=== PATIENT | male | born 1950 | race Caucasian/White ===

== ENCOUNTER 2019-06-26 06:50 | Day surgery (SDC) | payer MEDICARE ==
[2019-06-26 07:21] VITALS: PULSE 87
[2019-06-26] MEDS ORDERED: Sodium Chloride 0.9% 10 ML Syringe FLUSH PRN (07:45)
[2019-06-26 08:57] VITALS: BP 170/78
--- NOTE | 2019-06-26 13:59 | OR ---
DATE OF PROCEDURE: 06/26/2019 SURGEON: Anna Zapata MD POSTOPERATIVE CARE: Postoperative care will be provided mainly at the [address] [place] [address] [facility] in conjunction with [facility]. PREOPERATIVE DIAGNOSIS: Cataract, right eye. POSTOPERATIVE DIAGNOSIS: Cataract, right eye. PROCEDURE: Phacoemulsification with intraocular lens placement, right eye. ANESTHESIA: Topical and intracameral. ESTIMATED BLOOD LOSS: Minimal. COMPLICATIONS: None. PATHOLOGY SPECIMENS: None. SURGICAL FINDINGS: None. INDICATION FOR PROCEDURE: The patient is a 68-year-old male with history of a visually significant cataract in the right eye, which interfered with activities of daily living. This consisted of a nuclear sclerosis cataract. Following careful discussion of the risks, benefits and alternatives to cataract extraction with intraocular lens placement including blindness and , the patient elected to proceed, and informed, written consent was obtained prior to the procedure. DESCRIPTION OF THE PROCEDURE: The patient was previously identified, and a yane placed above the right eye. All sources, including the patient, indicated that the right eye was the correct eye. The patient was subsequently taken to the operating room where standard monitors were applied. The patient was then prepped and draped in the usual sterile fashion for ophthalmic surgery. Attention was first directed at the 12 o'clock position where a paracentesis port was fashioned. Shugar solution followed by Viscoat was instilled into the eye. Attention was then directed to the 8:30 position where a triplanar incision was made in a near-clear manner using a keratome. A continuous capsulorrhexis was then made using a combination of the cystotome and Utrata forceps. Hydrodissection was achieved using a balanced salt solution, and the lens rotated nicely. Phacoemulsification was then done using a modified iabkyw-zth-hjbgfxg technique without complication. Phaco time was 5.82 CDE. The remaining cortex was removed using the irrigation/aspiration handpiece. Provisc was then instilled into the eye. A Technis lens, model [id number], at 17.5 diopters was then placed in the capsular bag using an Fyffe injector. The remaining viscoelastic was removed using the irrigation/aspiration forceps. All wounds were then checked and found to be watertight. The lid speculum and drapes were removed. Maxitrol ointment was placed in the patient's right eye, and the eye was shielded. The patient tolerated the procedure well. The patient was instructed to follow up tomorrow. All needle and sponge counts were correct at the end of the procedure. Anna Zapata MD /[id number]
== END 2019-06-26 09:35 | disposition home or self-care (01) ==
LOC: JP.SDS 06:50
PROVIDERS: ATTEND Ophthalmology
DX: E11.36 Type 2 diabetes mellitus with diabetic cataract (principal); H25.11 Age-related nuclear cataract, right eye; Z88.8 Allergy status to other drugs, medicaments and biological substances
CPT/HCPCS: 66984; V2632

== ENCOUNTER 2019-07-10 06:57 | Day surgery (SDC) | payer MEDICARE ==
[2019-07-10] MEDS ORDERED: Sodium Chloride 0.9% 10 ML Syringe FLUSH SCH (08:15)
[2019-07-10 09:24] VITALS: BP 154/79; PULSE 82
--- NOTE | 2019-07-10 16:08 | OR ---
DATE OF PROCEDURE: 07/10/2019 SURGEON: Anna Zapata MD POSTOPERATIVE CARE: Postoperative care will be provided mainly at the [address] [place] [address] [facility] in conjunction with [facility]. PREOPERATIVE DIAGNOSIS: Cataract, left eye. POSTOPERATIVE DIAGNOSIS: Cataract, left eye. PROCEDURE: Phacoemulsification with intraocular lens placement, left eye. ANESTHESIA: Topical and intracameral. ESTIMATED BLOOD LOSS: Minimal. COMPLICATIONS: None. PATHOLOGY SPECIMENS: None. SURGICAL FINDINGS: None. INDICATION FOR PROCEDURE: The patient is a 68-year-old male with history of a visually significant cataract in the left eye, which interfered with activities of daily living. This consisted of a nuclear sclerosis cataract. Following careful discussion of the risks, benefits and alternatives to cataract extraction with intraocular lens placement including blindness and , the patient elected to proceed, and informed, written consent was obtained prior to the procedure. DESCRIPTION OF THE PROCEDURE: The patient was previously identified, and a yane placed above the left eye. All sources, including the patient, indicated that the left eye was the correct eye. The patient was subsequently taken to the operating room where standard monitors were applied. The patient was then prepped and draped in the usual sterile fashion for ophthalmic surgery. Attention was first directed at the 12 o'clock position where a paracentesis port was fashioned. Shugar solution followed by Viscoat was instilled into the eye. Attention was then directed to the 8:30 position where a triplanar incision was made in a near-clear manner using a keratome. A continuous capsulorrhexis was then made using a combination of the cystotome and Utrata forceps. Hydrodissection was achieved using a balanced salt solution, and the lens rotated nicely. Phacoemulsification was then done using a modified wykslm-sqv-zlftxzx technique without complication. Phaco time was 5.03 CDE. The remaining cortex was removed using the irrigation/aspiration handpiece. Provisc was then instilled into the eye. A Technis lens, model [id number], at 19.5 diopters was then placed in the capsular bag using an [place] injector. The remaining viscoelastic was removed using the irrigation/aspiration forceps. All wounds were then checked and found to be watertight. The lid speculum and drapes were removed. Maxitrol ointment was placed in the patient's left eye, and the eye was shielded. The patient tolerated the procedure well. The patient was instructed to follow up tomorrow. All needle and sponge counts were correct at the end of the procedure. Anna Zapata MD /[id number]
== END 2019-07-10 09:43 | disposition home or self-care (01) ==
LOC: JP.SDS 06:57
PROVIDERS: ATTEND Ophthalmology
DX: E11.36 Type 2 diabetes mellitus with diabetic cataract (principal); H25.12 Age-related nuclear cataract, left eye; J44.9 Chronic obstructive pulmonary disease, unspecified; E66.9 Obesity, unspecified; Z68.37 Body mass index [BMI] 37.0-37.9, adult; Z88.8 Allergy status to other drugs, medicaments and biological substances; Z79.82 Long term (current) use of aspirin; Z79.84 Long term (current) use of oral hypoglycemic drugs
CPT/HCPCS: V2632

== ENCOUNTER 2021-04-20 08:33 | Day surgery (SDC) | payer MEDICARE ==
[2021-04-20 08:24] LABS: CORONAVIRUS COVID-19 NAA NEGATIVE (NEGATIVE)
[~2021-04-20 08:33] MED LIST: Nozin Nasal Sanitizer NASBOTH ONE
[2021-04-20] MEDS ORDERED: Lactated Ringers 1,000 ML IV SCH (09:30)
[2021-04-20] MEDS ORDERED: Bupivacaine 0.5% 30 ML SDV ONE (09:41)
[2021-04-20] MEDS ORDERED: ceFAZolin 1 GM in Premix Bag 1 BAG IV ONE (10:00)
[2021-04-20] MEDS ORDERED: Propofol 200 MG/20 ML SDV ONE ×3 (12:08→13:31)
[2021-04-20] MEDS ORDERED: fentaNYL 100 MCG/2 ML SDV ONE ×3 (12:08→13:42)
[2021-04-20] MEDS ORDERED: Midazolam 1 MG/ML 2 ML SDV ONE (12:09)
[2021-04-20] MEDS ORDERED: Lidocaine 0.5% 50 ML SDV ONE (12:10)
[2021-04-20] MEDS ORDERED: Lactated Ringers 1,000 ML ONE (14:02)
[2021-04-20] MEDS ORDERED: Acetaminophen/HYDROcodone 325-5 MG Tab PO PRN (15:53)
[2021-04-20 16:09] VITALS: BP 122/73; PULSE 75
--- NOTE | 2021-04-25 16:27 | OR ---
DATE OF PROCEDURE: 04/20/2021 SURGEON: Chidi Fuchs MD PREOPERATIVE DIAGNOSIS: Avulsion of flexor digitorum profundus of left fourth finger with fracture of base of the distal phalanx. POSTOPERATIVE DIAGNOSES: 1. Avulsion of flexor digitorum profundus, left fourth finger with retraction of the tendon into the palm. 2. Fracture of the base of the distal phalanx, palmar aspect. PROCEDURES: 1. Open reduction and internal fixation of fracture of the base of distal phalanx, fourth finger. 2. Repair of flexor digitorum profundus avulsion, jersey finger, zone 1. SUBSYSTEMS ENGINEER: RAY Orozco ANESTHESIA: [place] block with sedation. INDICATIONS: Mr. Fountain is a 70-year-old gentleman who sustained a fall earlier this month resulting in injury to his fourth finger. He has been unable to flex the finger since that time. X-ray reveals a fracture at the base of the distal phalanx palmar aspect consistent with an avulsion fracture of the attachment of the FDP tendon caught up at the A5 luis eduardo. He now presents for fixation of the fracture and repair of the FDP tendon. Risks, benefits, and potential complications were discussed. DESCRIPTION OF PROCEDURE: After adequate anesthesia was obtained, left hand was prepped and draped in a sterile fashion. A Irma incision was planned over the palmar aspect of the fifth finger, exposing the distal interphalangeal joint. The fracture fragment was readily identified with no healing present. Unfortunately, this did not represent a simple avulsion with attached flexor digitorum tendon. The avulsed fragment had the volar plate attached, but the tendon was completely avulsed and retracted. Dissection carried down to the level of the PIP joint. The attachments of the flexor superficialis tendons were identified, and the flexor digitorum tendon was absent within the tendon sheath at this level. Couple of attempts were used to grasp the tendon using a Mosquito clip through the tendon sheath. This was unsuccessful. A separate incision was made in the palm overlying the A1 luis eduardo of the fourth finger. This was carried down over the A1 luis eduardo. The luis eduardo was divided, and the tendon was retrieved at this level and pulled out into the palm. The edges of the tendon were lightly debrided and contoured. A modified Jackson stitch was placed at the end of the tendon. A 4-[place]oc[place] pediatric feeding tube was passed through the tendon sheath and out the transected A1 luis eduardo in the palm. The Jackson suture in the end of the tendon was stitched to the feeding tube, and this was used to transport the tendon up through the tendon sheath. A 22-gauge needle was used to maintain the tendon in position. Attention was then turned to the displaced fracture. A #3 nylon suture was placed through the fracture fragment and woven into the volar plate. A K-wire was used to make 2 tunnels through the distal phalanx from palmar to dorsal exiting proximal to the nail matrix. A separate incision was made transversely proximal to the nail matrix at the level of the pins. The sutures from each end placed through the fragment and volar plate were passed using a straight Harish needle through the tunnels and brought out dorsally. The DIP was flexed, and the sutures were tied over the cortex of the bone. An additional 3-0 nylon suture was placed superficially through the end of the volar plate. Each end of this suture was passed with the straight needle around the edge of the phalanx and brought out through the dorsal incision. This was used as additional fixation of the fragment with the sutures again tied over the bone bridge dorsally. A 3-0 nylon suture was placed to the end of the tendon in a modified Jackson stitch. Each end of the sutures was also passed through the bone tunnels prior to tying down the fragment at the base of the distal phalanx. Once the fragment had been stabilized in position, the sutures for the tendon were tied while the finger was maintained in a flexed position approximating the end of the tendon to the base of the phalanx. Reinforcing stitches were placed through each side of the tendon incorporating the volar plate and the portion of the periosteum. These sutures were tied and cut. Wound was irrigated. Skin was closed with 4-0 chromic over the palmar aspect of the finger. A 3-0 nylon was used in interrupted mattress fashion over the A1 luis eduardo as well as in simple fashion on the dorsum of the finger distally. Care was taken to make sure that the dorsal suture knots were buried beneath the skin. The palm was infiltrated with 0.5% Marcaine as well as additional digital nerve block being performed. Wound was dressed with Xeroform gauze dressing with gauze between the fingers, and a short-arm fiberglass dorsal extension block splint was placed. The patient tolerated the procedure well. There were no complications. He was taken from the operating room in stable condition. Chidi Fuchs MD /[id number]
--- NOTE | 2021-04-26 12:56 | PCM.EKG ---
#1 Interpretation EKG Date: 04/20/21 Time: 08:59 Rhythm: NSR Rate (Beats/Min): 88 [place]: LAD-Left [place] Deviation (LAFB) P-Wave: Present QRS: Normal ST-T: Normal QT: Normal MI/PQ Interval: normal Comparison: NA - No Prior EKG EKG Interpretation Comments: LVH early R-S transition between V1 and V2
== END 2021-04-20 16:30 | disposition home or self-care (01) ==
LOC: JP.SDS 08:33
PROVIDERS: ATTEND Specialist
DX: S62.635A Displaced fracture of distal phalanx of left ring finger, initial encounter for closed fracture (principal); S66.195A Other injury of flexor muscle, fascia and tendon of left ring finger at wrist and hand level, initial encounter; I10 Essential (primary) hypertension; J44.9 Chronic obstructive pulmonary disease, unspecified; E11.9 Type 2 diabetes mellitus without complications; K21.9 Gastro-esophageal reflux disease without esophagitis; Z01.812 Encounter for preprocedural laboratory examination; Z20.822 Contact with and (suspected) exposure to COVID-19; Z88.8 Allergy status to other drugs, medicaments and biological substances; Z98.890 Other specified postprocedural states
CPT/HCPCS: 0241U; 26370; 26765; 36415; 76000; 80053; 85027; 93005; A9270; C1713; J0690; J2250; J2704; J3010; J3490; J7120

== ENCOUNTER 2024-05-29 11:37 | Emergency (ER) | payer MEDICAID, MEDICARE ==
[2024-05-29 12:21] LABS: BASOPHILS ABSOLUTE AUTO 0.03 K/uL (0.00-0.10); BASOPHILS PERCENT AUTO 0.4 % (0.1-1.3); EOSINOPHILS ABSOLUTE AUTO 0.07 K/uL (0.00-0.40); EOSINOPHILS PERCENT AUTO 0.8 % (0.0-5.4); HEMATOCRIT 37.3 % (38.4-49.7); HEMOGLOBIN 12.4 g/dL (12.9-16.9); IMMATURE GRAN ABSOLUTE AUTO 0.04 K/uL (0.00-0.23); IMMATURE GRAN PERCENT AUTO 0.5 % (0.0-0.7); LYMPHOCYTES ABSOLUTE AUTO 1.78 K/uL (0.8-3.3); LYMPHOCYTES PERCENT AUTO 20.8 % (11.4-47.7); MEAN CORPUSCULAR HEMOGLOBIN 28.5 pg (31.6-35.5); MEAN CORPUSCULAR HGB CONC 33.2 g/dL (31.6-35.5); MEAN CORPUSCULAR VOLUME 85.7 fL (81.4-99.0); MONOCYTES ABSOLUTE AUTO 1.28 K/uL (0.20-0.90); NEUTROPHILS ABSOLUTE AUTO 5.36 K/uL (1.0-7.6); NEUTROPHILS PERCENT AUTO 62.5 % (40.0-78.1); PLATELET COUNT,PLT 343 K/uL (130-375); RED BLOOD CELL COUNT 4.35 M/uL (4.14-5.76); WHITE BLOOD CELL COUNT,WBC 8.6 K/uL (3.2-11.0)
[2024-05-29 12:43] LABS: A/G RATIO 0.6 (1.2-2.2); ALANINE AMINOTRANSFERASE,ALT 24 U/L (12-78); ALKALINE PHOSPHATASE 99 U/L (46-116); ASPARTATE AMNIOTRANSFERASE,AST 17 U/L (15-37); BILIRUBIN TOTAL 0.4 mg/dL (0.2-1.0); C-REACTIVE PROTEIN 11.85 mg/dL (<0.50); CALCIUM 9.8 mg/dL (8.5-10.1); CARBON DIOXIDE,CO2 18 mmol/L (21-32); CHLORIDE,CL 102 mmol/L (100-108); CREATININE 2.4 mg/dL (0.8-1.3); EST CRCL DRUG DOSING (CG) 20.85 mL/min; ESTIMATED GFR 28 mL/min (>60); GLUCOSE RANDOM 110 mg/dL (74-106); SODIUM,NA 134 mmol/L (140-148)
[2024-05-29 12:45] LABS: ANION GAP 21.7 mmol/L (5.0-14.0); BLOOD UREA NITROGEN,BUN 79 mg/dL (7-18); POTASSIUM,K 7.7 mmol/L (3.6-5.2)
[2024-05-29 12:46] LABS: LACTIC ACID 1.1 mmol/L (0.4-2.0)
[2024-05-29] MEDS: Sodium Chloride 0.9% 1,000 ML IV SCH ×2 (13:23→16:16)
[2024-05-29] MEDS: Albuterol 0.083% 2.5 MG/3 ML Neb Soln NEB ONE (13:47)
[2024-05-29] MEDS: Insulin Regular, Human 100 Units/ML 3 ML Vial IVPUSH ONE (13:59)
[2024-05-29] MEDS: Calcium Gluconate 10% 1 GM/10 ML SDV IV ONE (14:00)
[2024-05-29] MEDS: 50% Dextrose in Water 50 ML Syringe IVPUSH ONE ×2 (14:01→15:27)
[2024-05-29] MEDS: Sodium Chloride 0.9% 10 ML Syringe FLUSH PRN (14:02)
[2024-05-29 14:46] LABS: APPEARANCE,URINE CLOUDY (CLEAR); BILIRUBIN,URINE NEGATIVE (NEGATIVE); COLOR,URINE YELLOW (YELLOW); GLUCOSE,URINE NEGATIVE (NEGATIVE); KETONES,URINE NEGATIVE (NEGATIVE); LEUKOCYTE ESTERASE,URINE LARGE (NEGATIVE); NITRITE,URINE NEGATIVE (NEGATIVE); OCCULT BLOOD,URINE LARGE (NEGATIVE); PROTEIN,URINE >=300 mg/dL (NEGATIVE); UROBILINOGEN,URINE 0.2 EU/dL (0.2-1.0)
[2024-05-29 14:54] LABS: AMORPHOUS SEDIMENT,URINE NOT SEEN; BACTERIA,URINE MODERATE; EPITHELIAL CELLS,URINE NOT SEEN; MUCUS,URINE NOT SEEN; WBC,URINE PACKED (0-5)
[2024-05-29] MEDS: Sodium Chloride 0.9% 1,000 ML IV ONE (15:10)
[2024-05-29 15:50] LABS: CALCIUM 8.9 mg/dL (8.5-10.1); EST CRCL DRUG DOSING (CG) 25.03 mL/min; POTASSIUM,K 5.3 mmol/L (3.6-5.2)
[2024-05-29 15:51] LABS: ANION GAP 17.3 mmol/L (5.0-14.0)
[2024-05-29] MEDS: metroNIDAZOLE/Normal Saline 500 MG in Premix Bag 1 BAG IV ONE (17:00)
[2024-05-29] MEDS: cefTRIAXone 2 GM in Sodium Chloride 0.9% 50 ML IV ONE (17:00)
[2024-05-29] MEDS: VANCOmycin 1.5 GM in Sodium Chloride 0.9% 250 ML IV ONE (17:07)
[2024-05-29] MEDS ORDERED: Acetaminophen 325 MG Tab PO PRN (20:38)
[2024-05-29] MEDS ORDERED: Loratadine 10 MG Tab PO PRN (20:38)
[2024-05-29] MEDS: Famotidine 20 MG Tab PO SCH ×2 (22:50→22:55)
[2024-05-29] MEDS: Tamsulosin 0.4 MG Cap.ER PO SCH (22:55)
[2024-05-29] MEDS: Loperamide 2 MG Cap PO SCH (22:55)
[2024-05-29] MEDS: busPIRone 10 MG Tab PO SCH (22:55)
[2024-05-30 05:47] LABS: BASOPHILS ABSOLUTE AUTO 0.03 K/uL (0.00-0.10); BASOPHILS PERCENT AUTO 0.4 % (0.1-1.3); EOSINOPHILS ABSOLUTE AUTO 0.22 K/uL (0.00-0.40); EOSINOPHILS PERCENT AUTO 3.1 % (0.0-5.4); HEMATOCRIT 33.4 % (38.4-49.7); HEMOGLOBIN 10.8 g/dL (12.9-16.9); IMMATURE GRAN ABSOLUTE AUTO 0.04 K/uL (0.00-0.23); IMMATURE GRAN PERCENT AUTO 0.6 % (0.0-0.7); LYMPHOCYTES ABSOLUTE AUTO 1.69 K/uL (0.8-3.3); LYMPHOCYTES PERCENT AUTO 23.6 % (11.4-47.7); MEAN CORPUSCULAR HEMOGLOBIN 28.3 pg (31.6-35.5); MEAN CORPUSCULAR HGB CONC 32.3 g/dL (31.6-35.5); MEAN CORPUSCULAR VOLUME 87.4 fL (81.4-99.0); MONOCYTES ABSOLUTE AUTO 0.98 K/uL (0.20-0.90); MONOCYTES PERCENT AUTO 13.7 % (3.3-12.6); NEUTROPHILS ABSOLUTE AUTO 4.19 K/uL (1.0-7.6); NEUTROPHILS PERCENT AUTO 58.6 % (40.0-78.1); PLATELET COUNT,PLT 268 K/uL (130-375); RED BLOOD CELL COUNT 3.82 M/uL (4.14-5.76); WHITE BLOOD CELL COUNT,WBC 7.2 K/uL (3.2-11.0)
[2024-05-30 06:04] LABS: CREATININE 1.3 mg/dL (0.8-1.3); EST CRCL DRUG DOSING (CG) 38.5 mL/min; POTASSIUM,K 5.6 mmol/L (3.6-5.2)
[2024-05-30 06:05] LABS: ANION GAP 17.6 mmol/L (5.0-14.0)
[2024-05-30] MEDS ORDERED: Glucagon,Human Recombinant 1 MG Vial IM PRN ×2 (07:19→13:37)
[2024-05-30] MEDS: Insulin Regular, Human 100 Units/ML 3 ML Vial IVPUSH ONE ×2 (08:08→14:11)
[2024-05-30] MEDS: 50% Dextrose in Water 50 ML Syringe IVPUSH PRN (08:10)
[2024-05-30] MEDS: Venlafaxine 75 MG Cap.ER PO SCH (08:19)
[2024-05-30] MEDS: metFORMIN 500 MG Tab PO SCH (08:49)
[2024-05-30] MEDS: Furosemide 20 MG Tab PO SCH (08:50)
[2024-05-30] MEDS: amLODIPine 5 MG Tab PO SCH (08:51)
[2024-05-30] MEDS: Lisinopril 10 MG Tab PO SCH (08:52)
[2024-05-30 10:53] VITALS: BP 116/59; PULSE 89
[2024-05-30 11:08] LABS: CALCIUM 9.1 mg/dL (8.5-10.1); CREATININE 1.2 mg/dL (0.8-1.3); EST CRCL DRUG DOSING (CG) 41.71 mL/min; POTASSIUM,K 5.6 mmol/L (3.6-5.2)
[2024-05-30 11:09] LABS: ANION GAP 17.6 mmol/L (5.0-14.0)
[2024-05-30] MEDS ORDERED: 50% Dextrose in Water 50 ML Syringe IVPUSH PRN (13:37)
[2024-05-30] MEDS ORDERED: cefTRIAXone 2 GM in Sodium Chloride 0.9% 50 ML IV ONE (13:41)
[2024-05-30] MEDS: 50% Dextrose in Water 50 ML Syringe IVPUSH ONE (14:10)
[2024-05-30] MEDS: cefTRIAXone 2 GM in Sodium Chloride 0.9% 50 ML IV ONE (14:16)
== END 2024-05-30 15:00 | disposition home or self-care (01) ==
LOC: JP.ED 11:37
DX: E87.5 Hyperkalemia (principal); N13.6 Pyonephrosis; N17.9 Acute kidney failure, unspecified; I10 Essential (primary) hypertension; E78.00 Pure hypercholesterolemia, unspecified; J44.9 Chronic obstructive pulmonary disease, unspecified; E11.9 Type 2 diabetes mellitus without complications; K21.9 Gastro-esophageal reflux disease without esophagitis; Z88.8 Allergy status to other drugs, medicaments and biological substances; Z79.82 Long term (current) use of aspirin; Z79.899 Other long term (current) drug therapy
CPT/HCPCS: 36415; 70450; 71250; 74176; 80048; 80053; 81001; 82947; 83605; 85025; 86140; 87040; 87086; 93005; 94640; 96361; 96365; 96367; 96368; 96375; 96376; 99285; A9270; J0612; J0696; J1815; J1836; J3371; J3490; J7030; J7050

== ENCOUNTER 2024-07-29 16:59 | Inpatient (IN) | payer MEDICAID, MEDICARE ==
[2024-07-29 17:55] LABS: BASOPHILS ABSOLUTE AUTO 0.05 K/uL (0.00-0.10); BASOPHILS PERCENT AUTO 0.3 % (0.1-1.3); EOSINOPHILS ABSOLUTE AUTO 0.11 K/uL (0.00-0.40); EOSINOPHILS PERCENT AUTO 0.6 % (0.0-5.4); HEMATOCRIT 28.6 % (38.4-49.7); HEMOGLOBIN 9.3 g/dL (12.9-16.9); IMMATURE GRAN ABSOLUTE AUTO 0.15 K/uL (0.00-0.23); IMMATURE GRAN PERCENT AUTO 0.8 % (0.0-0.7); LYMPHOCYTES PERCENT AUTO 6.8 % (11.4-47.7); MEAN CORPUSCULAR HGB CONC 32.5 g/dL (31.6-35.5); MEAN CORPUSCULAR VOLUME 89.1 fL (81.4-99.0); MONOCYTES ABSOLUTE AUTO 1.71 K/uL (0.20-0.90); MONOCYTES PERCENT AUTO 9.6 % (3.3-12.6); NEUTROPHILS ABSOLUTE AUTO 14.51 K/uL (1.0-7.6); NEUTROPHILS PERCENT AUTO 81.9 % (40.0-78.1); PLATELET COUNT,PLT 297 K/uL (130-375); RED BLOOD CELL COUNT 3.21 M/uL (4.14-5.76); WHITE BLOOD CELL COUNT,WBC 17.7 K/uL (3.2-11.0)
[2024-07-29] MEDS: Sodium Chloride 0.9% 1,000 ML IV STA (18:01)
[2024-07-29 18:15] LABS: A/G RATIO 0.5 (1.2-2.2); ALANINE AMINOTRANSFERASE,ALT 32 U/L (12-78); ALBUMIN 2.3 g/dL (3.4-5.0); ALKALINE PHOSPHATASE 109 U/L (46-116); ASPARTATE AMNIOTRANSFERASE,AST 17 U/L (15-37); BILIRUBIN TOTAL 0.4 mg/dL (0.2-1.0); BLOOD UREA NITROGEN,BUN 15 mg/dL (7-18); CALCIUM 9.4 mg/dL (8.5-10.1); CARBON DIOXIDE,CO2 23 mmol/L (21-32); CHLORIDE,CL 100 mmol/L (100-108); CREATININE 1.2 mg/dL (0.8-1.3); EST CRCL DRUG DOSING (CG) 54.01 mL/min; ESTIMATED GFR 63 mL/min (>60); GLUCOSE RANDOM 204 mg/dL (74-106); POTASSIUM,K 4.2 mmol/L (3.6-5.2); PROTEIN TOTAL,TP 7.1 g/dL (6.4-8.2); SODIUM,NA 136 mmol/L (140-148)
[2024-07-29 18:19] LABS: ANION GAP 17.2 mmol/L (5.0-14.0)
[2024-07-29] MEDS: Lidocaine 2% Jelly 10 ML Urojet MUCMEM ONE (19:52)
[2024-07-29 20:11] LABS: APPEARANCE,URINE CLOUDY (CLEAR); BILIRUBIN,URINE NEGATIVE (NEGATIVE); COLOR,URINE YELLOW (YELLOW); GLUCOSE,URINE NEGATIVE (NEGATIVE); KETONES,URINE NEGATIVE (NEGATIVE); LEUKOCYTE ESTERASE,URINE SMALL (NEGATIVE); NITRITE,URINE NEGATIVE (NEGATIVE); OCCULT BLOOD,URINE MODERATE (NEGATIVE); PROTEIN,URINE 100 mg/dL (NEGATIVE); UROBILINOGEN,URINE 0.2 EU/dL (0.2-1.0)
[2024-07-29 20:18] LABS: AMORPHOUS SEDIMENT,URINE NOT SEEN; BACTERIA,URINE FEW; EPITHELIAL CELLS,URINE RARE; MUCUS,URINE NOT SEEN; WBC,URINE 20-30 (0-5)
[2024-07-29] MEDS: Levofloxacin/Dextrose 5%-Water 750 MG in Premix Bag 1 BAG IV ONE (20:43)
[2024-07-29] MEDS ORDERED: Benzonatate 100 MG Cap PO PRN (21:52)
[2024-07-29] MEDS ORDERED: oxyCODONE 5 MG Tab PO PRN (21:52)
[2024-07-29] MEDS ORDERED: Ondansetron 4 MG Tab.DIS PO PRN (21:52)
[2024-07-29] MEDS ORDERED: Albuterol 0.083% 2.5 MG/3 ML Neb Soln NEB PRN (21:52)
[2024-07-29] MEDS ORDERED: Acetaminophen 325 MG Tab PO PRN (21:52)
[2024-07-29] MEDS ORDERED: Ondansetron 4 MG/2 ML SDV IV PRN (21:52)
[2024-07-29] MEDS ORDERED: Magnesium Hydroxide 400 MG/5 ML Susp 30 ML Cup PO PRN (21:52)
[2024-07-29] MEDS: atorvaSTATin 20 MG Tab PO SCH (22:56)
[2024-07-29] MEDS: Tamsulosin 0.4 MG Cap.ER PO SCH (22:56)
[2024-07-29] MEDS: Hypromellose 0.3% Ophth Soln 15 ML Bottle EYEBOTH SCH (22:57)
[2024-07-29] MEDS: Famotidine 20 MG Tab PO SCH (22:57)
[2024-07-29] MEDS: Lactobacillus Rhamnosus GG (Probiotic) Cap PO SCH (22:57)
[2024-07-29] MEDS: Sennosides/Docusate Sodium 50-8.6 MG Tab PO SCH (22:57)
[2024-07-29] MEDS: busPIRone 10 MG Tab PO SCH (22:57)
[2024-07-30] MEDS: Latanoprost 0.005% Ophth Soln 2.5 ML Bottle EYEBOTH SCH (00:11)
[2024-07-30] MEDS: Ipratropium 0.03% Nasal Spray 30 ML Bot NASBOTH SCH (00:11)
[2024-07-30] MEDS: Sodium Chloride 0.9% 1,000 ML IV SCH (05:46)
[2024-07-30 05:57] LABS: HEMATOCRIT 26.9 % (38.4-49.7); HEMOGLOBIN 8.8 g/dL (12.9-16.9); MEAN CORPUSCULAR HGB CONC 32.7 g/dL (31.6-35.5); MEAN CORPUSCULAR VOLUME 88.8 fL (81.4-99.0); RED BLOOD CELL COUNT 3.03 M/uL (4.14-5.76); WHITE BLOOD CELL COUNT,WBC 17.4 K/uL (3.2-11.0)
[2024-07-30 06:13] LABS: ANION GAP 16.1 mmol/L (5.0-14.0); CALCIUM 9.2 mg/dL (8.5-10.1); CREATININE 0.9 mg/dL (0.8-1.3); EST CRCL DRUG DOSING (CG) 72.01 mL/min; MAGNESIUM 1.4 mg/dL (1.8-2.4); POTASSIUM,K 4.1 mmol/L (3.6-5.2)
[2024-07-30] MEDS: Magnesium Sulf/Wat 2 GM/50 mL 2 GM in Premix Bag 1 BAG IV SCH (08:39)
[2024-07-30] MEDS: Calcium Polycarbophil 625 MG Tab PO SCH (08:40)
[2024-07-30] MEDS: Venlafaxine 75 MG Cap.ER PO SCH (08:40)
[2024-07-30] MEDS: ARIPiprazole 10 MG Tab PO SCH (08:40)
[2024-07-30] MEDS: Multivitamins with Iron/Calcium/Folic Acid/Minerals Tab PO SCH (08:40)
[2024-07-30] MEDS: Aspirin 81 MG Tab.EC PO SCH (08:41)
[2024-07-30] MEDS: Levofloxacin 250 MG Tab PO SCH (20:55)
[2024-07-30] MEDS: Tamsulosin 0.4 MG Cap.ER PO SCH (20:56)
[2024-07-31 06:03] LABS: BASOPHILS ABSOLUTE AUTO 0.04 K/uL (0.00-0.10); BASOPHILS PERCENT AUTO 0.2 % (0.1-1.3); EOSINOPHILS ABSOLUTE AUTO 0.29 K/uL (0.00-0.40); EOSINOPHILS PERCENT AUTO 1.7 % (0.0-5.4); HEMATOCRIT 25.7 % (38.4-49.7); HEMOGLOBIN 8.4 g/dL (12.9-16.9); IMMATURE GRAN ABSOLUTE AUTO 0.16 K/uL (0.00-0.23); IMMATURE GRAN PERCENT AUTO 0.9 % (0.0-0.7); LYMPHOCYTES ABSOLUTE AUTO 1.55 K/uL (0.8-3.3); MEAN CORPUSCULAR HEMOGLOBIN 29.2 pg (31.6-35.5); MEAN CORPUSCULAR HGB CONC 32.7 g/dL (31.6-35.5); MEAN CORPUSCULAR VOLUME 89.2 fL (81.4-99.0); MONOCYTES PERCENT AUTO 7.5 % (3.3-12.6); NEUTROPHILS ABSOLUTE AUTO 13.88 K/uL (1.0-7.6); NEUTROPHILS PERCENT AUTO 80.7 % (40.0-78.1); PLATELET COUNT,PLT 285 K/uL (130-375); RED BLOOD CELL COUNT 2.88 M/uL (4.14-5.76); WHITE BLOOD CELL COUNT,WBC 17.2 K/uL (3.2-11.0)
[2024-07-31] MEDS: Doxycycline 100 MG in Sodium Chloride 0.9% 100 ML IV SCH (08:56)
[2024-08-01 05:53] LABS: HEMOGLOBIN 8.1 g/dL (12.9-16.9); MEAN CORPUSCULAR HGB CONC 32.4 g/dL (31.6-35.5); MEAN CORPUSCULAR VOLUME 89.6 fL (81.4-99.0); RED BLOOD CELL COUNT 2.79 M/uL (4.14-5.76); WHITE BLOOD CELL COUNT,WBC 12.2 K/uL (3.2-11.0)
[2024-08-01 06:10] LABS: CREATININE 0.8 mg/dL (0.8-1.3); EST CRCL DRUG DOSING (CG) 81.01 mL/min; POTASSIUM,K 4.2 mmol/L (3.6-5.2)
[2024-08-01 06:24] LABS: ANION GAP 15.2 mmol/L (5.0-14.0)
[2024-08-02 05:46] LABS: HEMATOCRIT 26.3 % (38.4-49.7); HEMOGLOBIN 8.8 g/dL (12.9-16.9); MEAN CORPUSCULAR HEMOGLOBIN 29.2 pg (31.6-35.5); MEAN CORPUSCULAR HGB CONC 33.5 g/dL (31.6-35.5); MEAN CORPUSCULAR VOLUME 87.4 fL (81.4-99.0); RED BLOOD CELL COUNT 3.01 M/uL (4.14-5.76); WHITE BLOOD CELL COUNT,WBC 10.4 K/uL (3.2-11.0)
[2024-08-02] MEDS: Doxycycline 100 MG Cap PO SCH (21:05)
[2024-08-03 05:53] LABS: HEMATOCRIT 26.6 % (38.4-49.7); HEMOGLOBIN 8.8 g/dL (12.9-16.9); MEAN CORPUSCULAR HEMOGLOBIN 28.7 pg (31.6-35.5); MEAN CORPUSCULAR HGB CONC 33.1 g/dL (31.6-35.5); MEAN CORPUSCULAR VOLUME 86.6 fL (81.4-99.0); RED BLOOD CELL COUNT 3.07 M/uL (4.14-5.76); WHITE BLOOD CELL COUNT,WBC 10.9 K/uL (3.2-11.0)
[2024-08-03 06:09] LABS: ANION GAP 15.2 mmol/L (5.0-14.0); CALCIUM 9.3 mg/dL (8.5-10.1); CREATININE 0.8 mg/dL (0.8-1.3); EST CRCL DRUG DOSING (CG) 81.01 mL/min; POTASSIUM,K 4.2 mmol/L (3.6-5.2)
[2024-08-03] MEDS: guaiFENesin/Dextromethorphan 100-10 MG/5 ML Soln 10 ML Cup PO PRN (12:18)
[2024-08-04 05:24] VITALS: BP 127/59; PULSE 79
[2024-08-04] MEDS: Cefdinir 300 MG Cap PO SCH (08:17)
== END 2024-08-04 10:15 | disposition home or self-care (01) | DRG 871 ==
LOC: JP.ED 16:59 → JP.ICU 20:47
PROVIDERS: ADMIT Internal Medicine; ATTEND Hospitalist
DX: A41.9 Sepsis, unspecified organism (principal); J18.9 Pneumonia, unspecified organism; J96.01 Acute respiratory failure with hypoxia; F03.93 Unspecified dementia, unspecified severity, with mood disturbance; F03.94 Unspecified dementia, unspecified severity, with anxiety; J44.0 Chronic obstructive pulmonary disease with (acute) lower respiratory infection; R32 Unspecified urinary incontinence; H91.90 Unspecified hearing loss, unspecified ear; Z68.28 Body mass index [BMI] 28.0-28.9, adult; H54.7 Unspecified visual loss; E78.00 Pure hypercholesterolemia, unspecified; I10 Essential (primary) hypertension; K52.9 Noninfective gastroenteritis and colitis, unspecified; K21.9 Gastro-esophageal reflux disease without esophagitis; M19.90 Unspecified osteoarthritis, unspecified site; E11.9 Type 2 diabetes mellitus without complications; E66.9 Obesity, unspecified; S05.12XA Contusion of eyeball and orbital tissues, left eye, initial encounter; S05.11XA Contusion of eyeball and orbital tissues, right eye, initial encounter; D50.9 Iron deficiency anemia, unspecified; Z88.8 Allergy status to other drugs, medicaments and biological substances; Z79.84 Long term (current) use of oral hypoglycemic drugs; Z79.82 Long term (current) use of aspirin; Z79.899 Other long term (current) drug therapy; Z87.81 Personal history of (healed) traumatic fracture; Z68.26 Body mass index [BMI] 26.0-26.9, adult; Z98.49 Cataract extraction status, unspecified eye; Z90.89 Acquired absence of other organs; Z98.890 Other specified postprocedural states; W19.XXXA Unspecified fall, initial encounter
CPT/HCPCS: 36415; 70450; 71045; 71045-26; 80048; 80053; 81001; 83605; 83735; 85025; 85027; 96361; 96374; 97110-GP; 97161-GP; 97530-GP; 99222; 99231; 99232; 99238; 99285; 99285-25; A9270-GY; J0713; J1956; J3475; J3490; J7030

== ENCOUNTER 2025-04-21 14:16 | Emergency (ER) | payer MEDICARE ==
[2025-04-21 16:05] LABS: BASOPHILS ABSOLUTE AUTO 0.05 K/uL (0.00-0.10); BASOPHILS PERCENT AUTO 0.5 % (0.1-1.3); EOSINOPHILS ABSOLUTE AUTO 0.27 K/uL (0.00-0.40); EOSINOPHILS PERCENT AUTO 2.8 % (0.0-5.4); IMMATURE GRAN ABSOLUTE AUTO 0.05 K/uL (0.00-0.23); IMMATURE GRAN PERCENT AUTO 0.5 % (0.0-0.7); LYMPHOCYTES ABSOLUTE AUTO 2.06 K/uL (0.8-3.3); LYMPHOCYTES PERCENT AUTO 21.6 % (11.4-47.7); MONOCYTES ABSOLUTE AUTO 0.64 K/uL (0.20-0.90); MONOCYTES PERCENT AUTO 6.7 % (3.3-12.6); NEUTROPHILS ABSOLUTE AUTO 6.45 K/uL (1.0-7.6); NEUTROPHILS PERCENT AUTO 67.9 % (40.0-78.1); PLATELET COUNT,PLT 200 K/uL (130-375); RED BLOOD CELL COUNT 4.53 M/uL (4.14-5.76); WHITE BLOOD CELL COUNT,WBC 9.5 K/uL (3.2-11.0)
[2025-04-21 16:52] LABS: A/G RATIO 0.9 (1.2-2.2); ALANINE AMINOTRANSFERASE,ALT 40 U/L (12-78); ASPARTATE AMNIOTRANSFERASE,AST 31 U/L (15-37); BILIRUBIN TOTAL 0.5 mg/dL (0.2-1.0); BLOOD UREA NITROGEN,BUN 27 mg/dL (7-18); CARBON DIOXIDE,CO2 26 mmol/L (21-32); CHLORIDE,CL 102 mmol/L (100-108); CREATININE 1.0 mg/dL (0.8-1.3); ESTIMATED GFR 78 mL/min (>60); GLUCOSE RANDOM 136 mg/dL (74-106); POTASSIUM,K 4.4 mmol/L (3.6-5.2); PROTEIN TOTAL,TP 7.7 g/dL (6.4-8.2); SODIUM,NA 140 mmol/L (140-148)
[2025-04-21 18:46] LABS: INR 1.0; PTT,PARTIAL THROMBOPLSTIN TIME 24.1 sec (21.8-27.3)
[2025-04-21] MEDS: Heparin Sodium 5,000 Units/ML Vial IVPUSH ONE (18:57)
[2025-04-21 22:06] VITALS: BP 126/73; PULSE 70
== END 2025-04-21 22:52 ==
LOC: JP.ED 14:16
DX: I21.4 Non-ST elevation (NSTEMI) myocardial infarction (principal); I10 Essential (primary) hypertension; E78.00 Pure hypercholesterolemia, unspecified; J44.9 Chronic obstructive pulmonary disease, unspecified; K21.9 Gastro-esophageal reflux disease without esophagitis; E11.9 Type 2 diabetes mellitus without complications; Z88.8 Allergy status to other drugs, medicaments and biological substances; Z79.82 Long term (current) use of aspirin; Z79.899 Other long term (current) drug therapy; Z79.84 Long term (current) use of oral hypoglycemic drugs
CPT/HCPCS: 36415; 70450; 71045; 80053; 83605; 83735; 83880; 84484; 85025; 85610; 85730; 93005; 93010; 96361; 96365; 96366; 99285; A9270; J1644; J7030